=== PATIENT | female | born 1985 | race Caucasian/White ===

== ENCOUNTER 2017-05-14 08:01 | Inpatient (IN) | payer OTHER ==
--- NOTE | 2017-05-14 08:54 | HP ---
General Information - General Information Maternal Age: 32 Grav: 2 Para: 1 SAB: 0 IEA: 0 Estimated Due Date: 05/07/17 Determined By: LMP - Confirmed by 8 week sono Maternal Blood Type and Rh: O Positive - Results this Serology/RPR Result: Non-Reactive Rubella Result: Immune HBsAg Result: Negative HIV Result: Negative GBS Culture Result: Negative Past Medical History Delivery History: Hx Uncomplicated Vaginal Delivery Delivery History Comment: 05/08/2015 8lbs 3oz male infant "Jose Luis" Pertinent Past Medical History: Non-Contributory Pertinent Past Surgical History: See Records Past Surgical History Comment: 2007 PRK/Lasik 2008 [place] tooth extraction Pertinent Family History: See Records Family History Comment: Lymphoma, aneurysm, breast cancer (family members BrCA negative), skin cancer - Antepartal Records Antepartal Records: Reviewed, Uncomplicated Review of Systems Constitutional: Comfortable CV Complaint: No Respiratory: Shortness of Breath: No Gastrointestinal: No Nausea/Vomiting, Normal Bowel Movement Genitourinary: No Dysuria, No Bleeding, No Leaking Fluid Musculoskeletal: No Complaint Neurological: No Headache, No Visual Changes Movement: Normal Exam Allergies/Adverse Reactions: Allergies No Known Allergies Allergy (Verified 05/14/17 07:15) BP: 120/79 HR: 81 RR: 18 T: 97.5 - Measurements Height: 5 ft 8 in Weight: 169 lb Body Mass Index (BMI): 25.7 Pre- Weight: 145 lb - Exam Abdomen: No Upper Quadrant Pain Breast: Breast Exam Deferred CVA: No CVA Tenderness Extremities: No Edema Heart: Normal Rhythm/Heart Sounds HEENT: No Significant Findings Lungs: Clear Bilaterally Rectal: Rectal Exam Deferred Reflexes: DTR 2+ Thyroid: No Thyromegaly - Cervical Exam Posterior 5-6cm/80%/vtx -1. Amniotomy to clear fluid with exam at pt request - Abdominal Exam Abdomen Exam: Non-Tender, Fundal Height Consistent with Dates - Membranes Membrane Status: Intact - Until CNM AROM - Ultrasound/Biophysical Profile Ultrasound Status: Not Done EFM Findings - External Monitor Findings Baseline Heart Rate: 125 External Monitor Findings: Accelerations Present, No Pattern of Variable or Late Decelerations, Variability Moderate, Baseline Stable External Monitor Findings Comment: No evidence of metabolic acidemia Contractions: Irregular, Mild Assessment/Plan - Reason for Visit Reason for Visit: IUP at 41 weeks here for postdates IOL No evidence of metabolic acidemia - Obstetrical Risk Factors Risk Factors Comment: None - Plan Plan: Induction - PARQ amniotomy vs. IV pitocin given favorable cervix. After counseling and all ?s answered AROM performed at pt request, clear fluid. If no active labor within 4 hours pt agrees to IV pitocin. Will request pain mgmt PRN. Anticipate - Date/Time of Admission Date of Admission: 05/14/17 Time of Admission: 08:20
[2017-05-14 09:23] LABS: ABS Basophils 0 10^3/ul (0-0.2); ABS Eosinophils 0.1 10^3/ul (0-0.6); ABS Lymphocytes 1.8 10^3/ul (1.0-4.8); ABS Monocytes 0.5 10^3/ul (0-0.8); ABS Neutrophils 4.7 10^3/ul (1.5-7.7); ABS Nucleated RBC 0 10^3/ul; Hematocrit 33 % (35-47); Lymphocyte % 25.4 % (25-47); Mean Corpuscular HGB Conc 36 g/dl (31-36); Mean Corpuscular Hemoglobin 32 pg (27-31); Mean Corpuscular Volume 88 fL (80-97); Mean Platelet Volume 8.7 um3 (7.4-10.4); Nucleated Red Blood Cells % 0.1; Platelet Count 205 10^3/ul (150-450); Red Blood Count 3.79 10^6/ul (4.0-5.4); Red Cell Distribution Width 13 % (10.5-15); White Blood Count 7.2 10^3/ul (3.5-10.8)
[2017-05-14] MEDS ORDERED: Dibucaine 1% 28.35 GM TUBE PR PRN (15:08)
[2017-05-14] MEDS ORDERED: Witch Hazel PAD* JAR TOPICAL PRN (15:08)
[2017-05-14] MEDS ORDERED: Acetaminophen TAB* 325 MG PO PRN (15:08)
[2017-05-14] MEDS ORDERED: Glycerin ADULT SUPP PR PRN (15:08)
[2017-05-14] MEDS ORDERED: Ibuprofen TAB* 600 MG ONE (15:15)
[2017-05-14] MEDS: Ibuprofen TAB* 600 MG PO PRN (15:18)
[2017-05-14] MEDS ORDERED: Simethicone TAB* 80 MG TAB.CHEW PO SCH (17:30)
[2017-05-14] MEDS: Docusate CAP* 100 MG PO SCH (21:25)
[2017-05-15] MEDS: Ibuprofen TAB* 600 MG PO PRN ×2 (03:33→13:06)
[2017-05-15 06:57] LABS: ABS Basophils 0 10^3/ul (0-0.2); ABS Eosinophils 0.1 10^3/ul (0-0.6); ABS Lymphocytes 2.5 10^3/ul (1.0-4.8); ABS Monocytes 0.7 10^3/ul (0-0.8); ABS Neutrophils 6.8 10^3/ul (1.5-7.7); ABS Nucleated RBC 0 10^3/ul; Hematocrit 29 % (35-47); Hemoglobin 10.5 g/dl (12.0-16.0); Lymphocyte % 24.5 % (25-47); Mean Corpuscular HGB Conc 36 g/dl (31-36); Mean Corpuscular Hemoglobin 32 pg (27-31); Mean Corpuscular Volume 88 fL (80-97); Mean Platelet Volume 8.7 um3 (7.4-10.4); Nucleated Red Blood Cells % 0; Platelet Count 181 10^3/ul (150-450); Red Blood Count 3.31 10^6/ul (4.0-5.4); Red Cell Distribution Width 13 % (10.5-15); White Blood Count 10.2 10^3/ul (3.5-10.8)
[2017-05-15] MEDS: Ferrous Gluconate TAB* 324 MG TAB PO SCH ×2 (08:57→20:01)
[2017-05-15] MEDS: Docusate CAP* 100 MG PO SCH ×3 (08:57→20:01)
[2017-05-16] MEDS: Ferrous Gluconate TAB* 324 MG TAB PO SCH (08:07)
[2017-05-16] MEDS: Docusate CAP* 100 MG PO SCH (08:07)
[2017-05-16 08:11] VITALS: BP 125/82
== END 2017-05-16 10:48 | disposition home or self-care (01) | DRG 775 ==
LOC: MCHOBOUT 08:01 → MCHOB 08:19
PROVIDERS: ADMIT Midwife; ATTEND Midwife
PROC: 10E0XZZ Delivery of Products of Conception, External Approach (ICD-10-PCS; principal; 2017-05-14)
PROC: 10907ZC Drainage of Amniotic Fluid, Therapeutic from Products of Conception, Via Natural or Artificial Opening (ICD-10-PCS; 2017-05-14)
PROC: 3E033VJ Introduction of Other Hormone into Peripheral Vein, Percutaneous Approach (ICD-10-PCS; 2017-05-14)
DX: O48.0 Post-term pregnancy (principal); Z37.0 Single live birth; Z3A.41 41 weeks gestation of pregnancy
CPT/HCPCS: 36415; 85025; 86850; 86900; 86901; A9270-GY